=== PATIENT | male | born 1940 | race Caucasian/White ===

== ENCOUNTER → 2017-08-31 | Outpatient (CLI) | payer MEDICARE ==
[~2017-08-31] MED LIST: AVANDIA8 MG PO; CELEBREX200 MG PO; CHEWABLE ASPIRI81 MG PO; CIPRO 500MG TA500 MG PO; CLINDAMYCIN HC300 MG PO; COLLAGENASE EX; DIOVAN160 MG PO; ENBREL50 MG/ML SC; FOLIC ACID1 MG PO; GLIPIZIDE10 MG PO; LIPITOR80 M1 PO; METFORMIN1000 MG PO; METHOTREXATE2.5 M1 PO; METOPROLOL25 MG PO; MULTIVITAMIN1 TA1 PO; NITROQUICK0.4 MG SL; PREDNISONE1 MG PO; RESTORIL15 MG PO; XALATAN 0.2.5 ML/BOT OP; ZANTAC 150150 MG PO; [UNRECOGNIZED DRUG - OTHER] SC
--- NOTE | 2017-08-31 14:42 | RADIOLOGY REPORT PS360 ---
ARTERIAL/[id number] GANGRENE left great toe gangrene ORDERING PHYSICIAN: CAL MORALES DPM PATIENT AGE: 77 years TECHNIQUE: Segmental pressures obtained of both right and left leg. These are compared to brachial blood pressure to yield index at each level sampled including summary BOWEN. The data sheets from the procedure are available in PACS FINDINGS Rest study only performed today No prior studies available for comparison. Blood pressures reported are in millimeters mercury. RIGHT LEG BOWEN = 0.9. The right TBI is 0.5 Brachial BP: 114 Thigh BP: 125 Calf BP: 120 Ankle PT: 102 Ankle DP : 228 Digit =62 LEFT LEG BOWEN = 0.5 Left TBI is 0.3 Brachial BPD: 114 Thigh BP: 108 Calf BP: 37 Ankle PT:59 Ankle DP: 69 Digit = 31 Pulses and waveforms: Diminished waveforms and pulses IMPRESSION: 1. Normal right BOWEN. 2. Low left BOWEN of 0.5 with pressure decreasing dramatically between the thigh and the calf suggesting stenosis in the left popliteal or distal SFA region which may be confirmed with CTA if clinically warranted 3. 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
== END ==
LOC: RT 12:51
DX: R09.89 Other specified symptoms and signs involving the circulatory and respiratory systems (principal); I96 Gangrene, not elsewhere classified